=== PATIENT | female | born 1950 | race Caucasian/White ===

== ENCOUNTER 2023-04-16 18:57 | Emergency (ER) | payer MEDICARE, OTHER ==
[~2023-04-16] VITALS: Ht 167.6 cm; Wt 88.3 kg
[~2023-04-16 18:57] MED LIST: CHOL400T57 CORPAK; FAMO-115 CORPAK; MULT-1074 PO; [UNRECOGNIZED DRUG - CODE] PO
[2023-04-16 19:31] VITALS: BP 151/78; PULSE 85; TEMP 98.7; O2SAT 96
[2023-04-16] MEDS ORDERED: LIDOcaine 1% 30ml preserv. free vial SQ STA (20:25)
[2023-04-16] MEDS ORDERED: NAPR-56 PO (21:16)
[2023-04-16] MEDS ORDERED: tetanus & diphtheria toxoid (Td) vaccine 0.5ml IMVAC ONE (21:45)
[2023-04-16] MEDS ORDERED: TETanus/Pertussis (Acell)/Diphther VAC/PF (Tdap-Adult) 0.5ml syringe IMVAC ONE (21:49)
[2023-04-16 21:59] VITALS: RESP 20
== END 2023-04-16 22:00 | disposition home or self-care (01) ==
LOC: ER 18:58
DX: S61.212A Laceration without foreign body of right middle finger without damage to nail, initial encounter (principal); S61.214A Laceration without foreign body of right ring finger without damage to nail, initial encounter; Z91.09 Other allergy status, other than to drugs and biological substances; Z79.899 Other long term (current) drug therapy; W26.0XXA Contact with knife, initial encounter; Y93.89 Activity, other specified; Y92.89 Other specified places as the place of occurrence of the external cause; Y99.8 Other external cause status
CPT/HCPCS: 12002; 73140; 90471; 90715; 99283; A6449